=== PATIENT | male | born 1940 ===

== ENCOUNTER → 2020-09-26 | Day surgery (SDC) | payer MEDICARE, OTHER ==
[~2020-09-26] VITALS: Ht 170.2 cm; Wt 70.3 kg
[~2020-09-26] MED LIST: AMARYL2 MG PO; ASPIRIN EC81 MG PO; CALCIUM PO; METFORMIN HCL500 MG PO; ZESTRIL2.5 MG PO
[2020-09-26 12:45] LABS: HCT 37.1 % (42.0-52.0); HGB 11.2 g/dl (13.2-18.0); MCH 26.8 pg (25.0-31.0); MCHC 30.2 g/dL (32.0-36.0); MCV 88.8 fL (78.0-100.0); RBC 4.18 M/uL (4.70-6.00); WBC 7.3 K/uL (4.0-10.5)
[2020-09-26 13:06] LABS: BUN/CREAT RATIO (CALC) 13.6 RATIO; CREATININE 1.1 mg/dL (0.67-1.17); POTASSIUM 4.3 mmol/L (3.5-5.1)
== END | disposition home or self-care (01) ==
LOC: FAS 11:52
PROVIDERS: Anesthesiology; Legal Medicine
DX: G56.03 Carpal tunnel syndrome, bilateral upper limbs (principal); G56.23 Lesion of ulnar nerve, bilateral upper limbs; E11.42 Type 2 diabetes mellitus with diabetic polyneuropathy; M19.90 Unspecified osteoarthritis, unspecified site; Z79.82 Long term (current) use of aspirin; Z79.84 Long term (current) use of oral hypoglycemic drugs; Z79.899 Other long term (current) drug therapy
CPT/HCPCS: 36415; 80048; J0690; J1100; J1885; J2405; J2704; J2795; J3010; J7120